=== PATIENT | female | born 1985 | race Caucasian/White ===

== ENCOUNTER 2021-02-06 06:51 | Inpatient (IN) | payer OTHER, MEDICAID ==
[~2021-02-06] VITALS: Ht 162.6 cm; Wt 84.5 kg
[2021-02-14] VITALS (63 sets, daily range): BP systolic 113–180; BP diastolic 56–125; PULSE 74–136; TEMP 97.5–98.8
--- NOTE | 2021-02-14 06:40 | NUR ---
0640: PT ARRIVES TO FLOOR FOR SCHEDULED IOL FOR POST TERM WITH SPOUSE, ASSISTED INTO RESTROOM TO CHANGE INTO GOWN AND ORIENTED TO LABOR ROOM, DENIES FEELING CONTRACTIONS, VAGINAL BLEEDING/LEAKING OF FLUID, REPORTS NORMAL MOVEMENT. CONSENTS REVIEWED AND SIGNED. REVIEWED POC FOR INDUCTION, QUESTIONS ANSWERED, PT AGREEABLE TO PLAN 0718: PITOCIN REVIEWED, PT AGREES, PITOCIN STARTED PER PROTOCOL, SEE EMAR 0724: AT BEDSIDE, REVIEWS STRIP, SVE /-2, DISCUSSES AROM/PT AGREES, AROM @ 0724 WITH CLEAR FLUID, PT TOLERATED PROCEDURE WELL, DENIES FURTHER QUESTIONS
[2021-02-14] MEDS ORDERED: PEPCID 20MG TAB20 MG PO (07:30)
[2021-02-14] MEDS ORDERED: FEOSOL45 MG (07:30)
[2021-02-14] MEDS ORDERED: PROBIOTIC ACID1 EAC3 PO (07:31)
[2021-02-14] MEDS ORDERED: PRENATAL (07:31)
[2021-02-14 07:49] LABS: BASO # 0.1 (0.0-0.2); BASO % 0.5 % (0.0-2.0); EOS # 0.2 (0.0-0.7); EOS % 1.6 % (0-4.0); GRAN # 10.5 (1.4-6.5); GRAN % 77.5 % (42.2-75.2); LYMPH # 2.1 (1.2-3.4); LYMPH % 15.2 % (20.0-51.0); MEAN CELL VOLUME 90 fl (80.0-100.0); MEAN CORPUSCULAR HEMOGLOBIN 30 pg (27.0-31.0); MEAN CORPUSCULAR HGB CONC 33 g/dl (33.0-37.0); MEAN PLATELET VOLUME 10.9 fl (7.4-10.4); MONO # 0.6 (0.1-0.6); MONO % 4.1 % (1.7-9.3); PLATELET COUNT 313 K/mm3 (130-400); RED BLOOD COUNT 4.03 M/mm3 (4.10-5.30); REDCELL DISTRIBUTION WIDTH-CV 12.9 % (11.5-14.5)
[2021-02-14 07:51] LABS: HEMATOCRIT 36.2 % (37.0-47.0)
[2021-02-14 09:26] LABS: ALBUMIN 3.8 gm/dL (3.5-5.0); BILIRUBIN,TOTAL 0.8 mg/dL (0.0-1.0); CREATININE, serum 0.5 (0.52-1.25); POTASSIUM 4.2 mmol/L (3.4-5.0); TOTAL PROTEIN 7.3 gm/dL (6.4-8.2)
--- NOTE | 2021-02-14 12:02 | NUR ---
LR BAG #2 HUNG AT THIS TIME
--- NOTE | 2021-02-14 17:49 | NUR ---
AT BEDSIDE, REVIEWS STRIP, SVE /+1, CONTINUE WITH POC, PHYSICIAN REMAINS ON UNIT
--- NOTE | 2021-02-14 18:15 | NUR ---
Report received from Christopher NASH. Pt laying in bed. Denies needing anything at this time. at nurses station. 1907: SVE 9/100/+1. Pericare provided. Pt repostioned to Right lateral with left leg in stirrups per her request. [id number]: Deceleration noted down to 95bpm at lowest point lasting 270 seconds with spontaneous return to baseline. 1924: SVE C/+2. Pt repostioned to high fowlers. 1929: at nurses station and updated. See physican notification. 1934: at bedside. Education on pushing with contractions explained to pt and , questions answered. Pt pushes on contraction with provider. Provider to stay on unit at nurses station. 2007: at bedside for delivery. Pt prepped for delivery and begins pushing with provider. 2013: Spontaneoud delivery of infants head by . NC X1 reduced by provider. Spontaneous delivery of viable male by . Pitocin stopped per protocol. stimulated by provider and placed to mother chest where care of assumed by Chris NASH. 2016: Spoentaneous delivery of intact placenta by . Pitocin resummed at 333mus/hr per protocol. Fundal message completed. First degree laceration and Bilalteral periurethal laceration repaired by . Pericare provided, pads changed and ice pack applied to perineum. Pt repositoned in bed. Plan of care and safety precautions explained to pt and who verbalize their understanding. Call light within reach.
[2021-02-15 03:30] VITALS: BP 112/76; PULSE 97; TEMP 97.3
[2021-02-15 08:00] VITALS: BP 132/84; PULSE 107; TEMP 97.7
--- NOTE | 2021-02-15 08:45 | NUR ---
0745 PT INDEPENDENTLY AMBULATES TO BATHROOM, TOLERATES WELL. PERFORMS OWN MARISOL CARE. AMBULATES BACK TO BED. VITALS DONE. RN DISCUSSES PLAN OF CARE AND PROVIDES EDUCATION PER PT REQUEST ABOUT STOOL SOFTNER, EXPECTATIONS OF VAGINAL BLEEDING, AND PROVIDES HELP. ALL QUESTIONS ANSWERED AT THIS TIME.
--- NOTE | 2021-02-15 09:25 | NUR ---
Initial visit; Parents thanked Edge Trimming Machine Operator for offering congratulations and God's blessings for the of their son. Edge Trimming Machine Operator thanked family for choosing [place].
[2021-02-15 12:00] VITALS: BP 127/68; PULSE 102; TEMP 97.7
[2021-02-15 18:13] VITALS: BP 113/66; PULSE 101; TEMP 98
[2021-02-15 21:35] VITALS: BP 123/77; PULSE 120; TEMP 98.1
[2021-02-16 07:20] VITALS: BP 124/80; PULSE 89; TEMP 97.5
[2021-02-16] MEDS ORDERED: MOTRIN 800800 MG/TAB PO (08:07)
[2021-02-16] MEDS ORDERED: PERCOCET 325 MG1 TA2 PO (08:08)
[2021-02-16 16:50] VITALS: BP 128/88; PULSE 92; TEMP 98
== END 2021-02-16 18:00 | disposition home or self-care (01) | DRG 807 ==
LOC: LDR 02-14 06:35 → OB 02-14 06:35
PROVIDERS: ADMIT Obstetrics & Gynecology
PROC: 10E0XZZ Delivery of Products of Conception, External Approach (ICD-10-PCS; principal; 2021-02-14)
PROC: 10907ZC Drainage of Amniotic Fluid, Therapeutic from Products of Conception, Via Natural or Artificial Opening (ICD-10-PCS; 2021-02-14)
PROC: 0HQ9XZZ Repair Perineum Skin, External Approach (ICD-10-PCS; 2021-02-14)
PROC: 0UQMXZZ Repair Vulva, External Approach (ICD-10-PCS; 2021-02-14)
DX: O48.0 Post-term pregnancy (principal); Z37.0 Single live birth; Z3A.41 41 weeks gestation of pregnancy; O99.02 Anemia complicating childbirth; D64.9 Anemia, unspecified
CPT/HCPCS: J0360; J2590; J2795; J7120

== ENCOUNTER → 2021-02-21 | Outpatient (CLI) | payer OTHER, MEDICAID ==
[~2021-02-21] MED LIST: FEOSOL45 MG; MOTRIN 800800 MG/TAB PO; PEPCID 20MG TAB20 MG PO; PERCOCET 325 MG1 TA2 PO; PRENATAL; PROBIOTIC ACID1 EAC3 PO
--- NOTE | 2021-02-21 17:00 | NUR ---
Pt, Li Motta, presents for outpatient consult with one week old baby boy Mick Cadena and her spouse Alan. They are being seen today because at the time of discharge from the hospital Mick was not latching well, had hyperbilirubinemia, wt loss at 8% and was needing supplement by bottle. Mick was born on [birth year] and weighed 7#5.5oz (3330 gms). Mick has been and bottle feeding about 60ml EBM or formula 7 times per day. Pt has been pumping, collecting 5-20 ml per session. Today Mick weighs 7#6.3oz (3354 gms). His effort to latch is much better than in the hospital. He has qs voids and stools. After 20+ min per side, Mick had a weight gain of 22gms. The family is receptive to SNS, they are instructed and assisted with SNS. Mick takes 20ml EBM via SNS and has an additional 4 gm gain after breastfeeeding with SNS. He is then fed 35ml formula by bottle as he has been at the breast quite a long time with two breastfeedings. Total weight gain is 81 gms. LC discusses possible cause for low milk supply, unable to determine a specific cause. Pt will continue working with , SNS, and pumping to monitor breastmilk supply. Information about power pumping, herbal supplements, nutrition, and fluids reviewed. POC: Continue feeding plan, supplementing via SNS if possible, as well as previously mentioned suggestions. F/U: Pt will contact this LC in 3 days to discuss progress. They have a high grade scale at home they may elect to do pre and post feed weights with. Questions invited and answered.
== END ==
LOC: LAC 14:05
DX: Z39.1 Encounter for care and examination of lactating mother (principal); Z71.89 Other specified counseling

== ENCOUNTER → 2021-02-27 | Outpatient (CLI) | payer OTHER, MEDICAID ==
--- NOTE | 2021-02-27 13:57 | NUR ---
Pt, Li Cadena, presents for outpatient consult with 13 day old baby boy Mick Cadena and her spouse, Alan. They were seen on 02/21/21 for evaluation. Mick was born on [birth year] and weighed 7#5.5oz (3331 gms). Last week he weighed 7#6.3oz (3354 gms). His intake at was 22ml. Feeding plan was to breast/bottle/pump. Today Mick weighs 7#13.8oz (3568 gms). Mick has been nursing 8 times per day, and then has gotten 12-15oz supplement by bottle for each of the last 24 hours. After today Mick had a weight gain of 52 gms (1.9 oz). He is offered a bottle and only drank 18ml. Pt pumps and collects 10ml. Pt expresses she is unsure about continuing with /pumping, but when feeding data is reviewed, she is probably providing about 50% of Mick's intake at the breast, which she is encouraged by. POC: Breastfeed every 2-3 hours, supplement ~1oz EBM or formula by bottle after. Pump as needed if Mick does not nurse well. F/U: Contact this LC in 2-3 days by telephone to determine further follow-up. Questions invited and answered.
== END ==
LOC: LAC 12:54
DX: Z39.1 Encounter for care and examination of lactating mother (principal); Z71.89 Other specified counseling

== ENCOUNTER → 2021-03-06 | Outpatient (CLI) | payer OTHER, MEDICAID ==
--- NOTE | 2021-03-06 13:23 | NUR ---
Pt, Li Cadena, presents for outpatient consult with 3 week old baby boy, Mick Cadena. She is also accompanied her spouse, Alan. This family is being followed because Mick had a slow start to . Today they are evaluating milk volume transfer. Mick was born [birth year] and weighed 7#5.5oz (3331 gms). Last week he weighed 7#13.8oz (3566 gms). Today he weighs 8#3.4oz (3726 gms) for a gain of 5.6oz over the last week. They have been feeding Mick at the breast on demand, which is 10+ times per day. In the last 24 hours he has had 5oz EBM/formula. He is less receptive to supplement than he was at our previous consult. After nursing here Mick had a gain of 2.7oz (76 gms). He was offered formula after and took 60 ml. POC: Continue q 2-3 hours and supplement ~1oz EBM or formula after each feeding. F/U: Pt plans to utilize [facility] for a weight check next week and then will have his one month appt with Dr. Fletcher on March 22, 2021.
== END ==
LOC: LAC 12:46
DX: Z39.1 Encounter for care and examination of lactating mother (principal); Z71.89 Other specified counseling

== ENCOUNTER 2021-10-13 15:40 | Emergency (ER) | payer OTHER, MEDICAID ==
[~2021-10-13] VITALS: Ht 160 cm; Wt 77.3 kg
[2021-10-13 15:47] VITALS: TEMP 97.9
[2021-10-13 16:33] LABS: BASO % 0.5 % (0.0-2.0); EOS # 0.2 K/mm3 (0.0-0.7); EOS % 2.3 % (0.0-4.0); GRAN # 4.8 K/mm3 (1.4-6.5); GRAN % 62.6 % (42.2-75.2); HEMATOCRIT 37.5 % (37.0-47.0); HEMOGLOBIN 12.2 g/dl (12.5-16.0); LYMPH # 2.2 K/mm3 (1.2-3.4); LYMPH % 27.9 % (20.0-51.0); MEAN CELL VOLUME 90 fl (80.0-100.0); MEAN CORPUSCULAR HEMOGLOBIN 29 pg (27-31); MEAN CORPUSCULAR HGB CONC 33 g/dl (33.0-37.0); MEAN PLATELET VOLUME 9.5 fl (7.4-10.4); MONO # 0.5 K/mm3 (0.1-0.6); MONO % 6.4 % (1.7-9.3); PLATELET COUNT 321 K/mm3 (130-400); RED BLOOD COUNT 4.18 M/mm3 (4.10-5.30); REDCELL DISTRIBUTION WIDTH-CV 12.2 % (11.5-14.5)
[2021-10-13 16:49] LABS: ALBUMIN 4.1 gm/dL (3.5-5.0); BILIRUBIN,TOTAL 0.3 mg/dL (0.2-1.2); CALCIUM 9.4 mg/dL (8.4-10.2); CREATININE, serum 0.69 mg/dL (0.57-1.11); POTASSIUM 3.8 mmol/L (3.5-4.5); TOTAL PROTEIN 7.5 gm/dL (6.2-8.1)
[2021-10-13 17:19] LABS: COLLECTION METHOD CLEAN CATCH
[2021-10-13 17:28] LABS: PH 5 (5-8); SQUAMOUS EPITHELIAL 0-2 /hpf (0-10); URINE APPEARANCE Clear (CLEAR/HAZY); URINE BACTERIA None Seen /hpf (NONE SEEN); URINE BILIRUBIN Negative (NEGATIVE); URINE BLOOD Negative (NEGATIVE); URINE COLOR Straw (YELLOW); URINE GLUCOSE Negative (NEGATIVE); URINE KETONE Negative (NEGATIVE); URINE LEUKOCYTE ESTERASE Negative (NEGATIVE); URINE NITRATE Negative (NEGATIVE); URINE PROTEIN(semi-quant) Negative (NEGATIVE); URINE RBC 0-2 /hpf (0-2); URINE UROBILINOGEN Negative (NEGATIVE)
[2021-10-13 18:13] VITALS: BP 154/99; PULSE 88
== END 2021-10-13 18:13 | disposition home or self-care (01) ==
LOC: COL.ER 15:40
PROVIDERS: Physician Assistant
DX: U07.1 COVID-19 (principal); D64.9 Anemia, unspecified; I10 Essential (primary) hypertension; R10.31 Right lower quadrant pain; Z32.02 Encounter for pregnancy test, result negative